=== PATIENT | female | born 1975 | race Caucasian/White ===

== ENCOUNTER → 2020-10-11 09:20 | Outpatient (BNVA) | payer OTHER, SELFPAY | PROVIDERS: Visit Provider Obstetrics & Gynecology ==

== ENCOUNTER 2020-10-24 13:19 | Outpatient (REF) | payer OTHER, SELFPAY ==
--- NOTE | ~2020-10-24 | MM_ITS ---
EXAMINATION: MM DIAGNOSTIC DIGITAL BREAST TOMOSYNTHESIS, BILATERAL US DIAGNOSTIC ULTRASOUND BREAST, LEFT CLINICAL INFORMATION: 45-year-old with [place] sized palpable nodule 4:00 left breast for one month. Clinical exam also notes palpable fullness left breast 6:00 position 3 cm from nipple. No prior breast imaging. No known family history breast cancer. The lifetime risk of breast cancer based on the Tyrer-Cuzick Model is 13%. COMPARISON: None (current study represents initial baseline exam). TECHNIQUE: Digital breast tomosynthesis is performed in both the craniocaudal and mediolateral oblique views along with computer-aided detection (CAD). Synthesized 2D images are generated from the tomosynthesis. Additional views are provided: Left MLO, right CC x2. Ultrasound left breast is targeted to the areas of clinical concern including 2:00 through 8:00 position. Patient is able to point to the area of palpable concern at time of imaging. Grayscale imaging and color Doppler are performed without and with harmonics. FINDINGS: The breasts are heterogeneously dense, which may obscure small masses (ACR BI-RADS breast composition Category c). Parenchymal pattern borders on average fibroglandular. There is no mass or architectural abnormality. There is mild left nipple retraction. No abnormal calcifications in either breast. The axilla and skin contours are unremarkable. There are numerous fine punctate densities overlying the posterior medial breasts at the inframammary folds, more numerous on the right. These correspond to the skin on tomography. Although some of the punctate particles may correspond to skin calcifications, the distribution and arrangement are suggestive of artifact. Discussion with the patient confirms use of Desitin topical, last used yesterday. Ultrasound demonstrates no cystic or solid mass or architectural abnormality. No focal duct ectasia. No skin thickening or edema tracking in soft tissue planes. Results are discussed with the patient at time of visit. Patient should be managed based on the clinical impression. If clinically indicated, further evaluation may be considered with surgical consult. Decision to proceed with biopsy should be based on clinical grounds and degree of clinical concern. MM/MM tomosynthesis diagnostic BI IMPRESSION: 1. No mammographic evidence of malignancy. 2. Unremarkable targeted left breast ultrasound. 3. No imaging correlate for palpable concerns left breast. ASSESSMENT: BI-RADS 2: Benign RECOMMENDATION: 1. Patient should be managed based on the clinical impression. If clinically indicated, further evaluation may be considered with surgical consult. Decision to proceed with biopsy should be based on clinical grounds and degree of clinical concern. 2. Otherwise, routine annual screening mammography. This patient's information was entered into a reminder system with a target due date for their next mammogram.
== END 2020-10-24 13:20 | disposition home or self-care (01) ==
LOC: HO.MAMMO 13:19
PROVIDERS: Visit Provider Obstetrics & Gynecology
DX: N63.23 Unspecified lump in the left breast, lower outer quadrant (principal); N63.25 Unspecified lump in the left breast, overlapping quadrants
CPT/HCPCS: 76642; 77062; 77066

== ENCOUNTER 2023-03-09 06:04 | Outpatient (REF) | payer OTHER, SELFPAY ==
[2023-03-09 06:29] LABS: MANUAL DIFF FLAG NO
[2023-03-09 07:46] LABS: Basophils Absolute Auto 0.1 X10*3/uL (0.0-0.2); Basophils Percent Auto 0.9 % (0-2); Hematocrit 40.6 % (37.0-47.0); Hemoglobin 13.5 g/dl (12.0-16.0); Imm Gran Abs Auto 0.03 X10*3/uL (0.00-0.03); Imm Gran Pct Auto 0.3 % (0.0-0.4); Lymphocytes Absolute Auto 2.2 X10*3/uL (1.2-4.9); Lymphocytes Percent Auto 25.4 % (20-40); Mean Corpuscular HGB Conc 33.3 g/dl (31.0-35.0); Mean Corpuscular Hemoglobin 30.9 pg (27.0-33.0); Mean Corpuscular Volume 92.9 fL (80.0-98.0); Mean Platelet Volume 9.9 fL (9.4-12.3); Monocytes Absolute Auto 0.6 X10*3/uL (0.1-1.2); Monocytes Percent Auto 7.2 % (2-11); Neutrophils Absolute Auto 4.6 x10*3/uL (2.0-8.3); Neutrophils Percent Auto 54.2 % (45-73); Platelet Count 399 X10*3/uL (160-400); Red Blood Count 4.37 X10*6/uL (4.20-5.50); Red Cell Distribution Width 12.5 % (11.0-16.0); White Blood Count 8.6 X10*3/uL (4.8-10.8)
[2023-03-09 08:12] LABS: Alanine Aminotransferase 14 U/L (0-31); Albumin Level 3.8 g/dL (3.5-5.0); Alkaline Phosphatase 50 U/L (39-117); Anion Gap 12 (12-20); Aspartate Amino Transferase 14 U/L (5-31); Bilirubin Total 0.5 mg/dL (0.0-1.0); Blood Urea Nitrogen 17 mg/dL (9-16); Calcium 9.2 mg/dL (8.4-10.2); Carbon Dioxide 21 mmol/L (22-29); Chloride 110 mmol/L (96-108); Cholesterol 176 mg/dL (<200); Estimated Glomerular Filt Rate > 60; Glucose Random 88 mg/dL (60-115); HDL Cholesterol 46 mg/dL (>40); LDL Cholesterol Calculated 120 mg/dL (<100); Potassium 4.5 mmol/L (3.3-5.1); Sodium 138 mmol/L (135-145); Triglycerides 54 mg/dL (<150)
== END 2023-03-09 06:05 | disposition home or self-care (01) ==
LOC: HO.LAB 06:04
PROVIDERS: PCP Internal Medicine; Visit Provider Internal Medicine
DX: Z00.01 Encounter for general adult medical examination with abnormal findings (principal); K43.9 Ventral hernia without obstruction or gangrene; I10 Essential (primary) hypertension; F32.9 Major depressive disorder, single episode, unspecified; G43.109 Migraine with aura, not intractable, without status migrainosus
CPT/HCPCS: 36415; 80053; 80061; 85025

== ENCOUNTER 2024-02-06 06:57 | Outpatient (REF) | payer OTHER, SELFPAY ==
[2024-02-06 07:17] LABS: MANUAL DIFF FLAG NO
[2024-02-06 08:02] LABS: Basophils Absolute Auto 0.1 X10*3/uL (0.0-0.2); Basophils Percent Auto 0.8 % (0-2); Eosinophils Absolute Auto 0.2 X10*3/uL (0.0-0.4); Eosinophils Percent Auto 2.9 % (0-4); Hematocrit 37.9 % (37.0-47.0); Hemoglobin 12.9 g/dl (12.0-16.0); Imm Gran Abs Auto 0.03 X10*3/uL (0.00-0.03); Imm Gran Pct Auto 0.4 % (0.0-0.4); Lymphocytes Absolute Auto 2.1 X10*3/uL (1.2-4.9); Lymphocytes Percent Auto 26.8 % (20-40); Mean Corpuscular Hemoglobin 30.8 pg (27.0-33.0); Mean Corpuscular Volume 90.5 fL (80.0-98.0); Mean Platelet Volume 9.1 fL (9.4-12.3); Monocytes Absolute Auto 0.6 X10*3/uL (0.1-1.2); Monocytes Percent Auto 7.5 % (2-11); Neutrophils Absolute Auto 4.8 x10*3/uL (2.0-8.3); Neutrophils Percent Auto 61.6 % (45-73); Platelet Count 396 X10*3/uL (160-400); Red Blood Count 4.19 X10*6/uL (4.20-5.50); Red Cell Distribution Width 13.2 % (11.0-16.0); White Blood Count 7.8 X10*3/uL (4.8-10.8)
[2024-02-06 08:44] LABS: Alanine Aminotransferase 21 U/L (0-31); Albumin Level 3.8 g/dL (3.5-5.0); Alkaline Phosphatase 56 U/L (39-117); Anion Gap 12 (12-20); Aspartate Amino Transferase 17 U/L (5-31); Bilirubin Total 0.4 mg/dL (0.0-1.0); Blood Urea Nitrogen 13 mg/dL (9-16); Calcium 9.5 mg/dL (8.4-10.2); Carbon Dioxide 22 mmol/L (22-29); Chloride 111 mmol/L (96-108); Cholesterol 179 mg/dL (<200); Estimated Glomerular Filt Rate > 60; Glucose Random 87 mg/dL (60-115); HDL Cholesterol 50 mg/dL (>40); LDL Cholesterol Calculated 105 mg/dL (<100); Potassium 4.2 mmol/L (3.3-5.1); Sodium 141 mmol/L (135-145); Triglycerides 124 mg/dL (<150)
== END 2024-02-06 06:58 | disposition home or self-care (01) ==
LOC: HO.LAB 06:57
PROVIDERS: PCP Internal Medicine; Visit Provider Internal Medicine
DX: I10 Essential (primary) hypertension (principal); G43.109 Migraine with aura, not intractable, without status migrainosus
CPT/HCPCS: 36415; 80053; 80061; 85025

== ENCOUNTER 2024-02-29 15:11 | Outpatient (AMB) | payer OTHER, SELFPAY ==
--- NOTE | 2024-02-29 15:12 | MHC.OFFVIS ---
Vital Signs 02/29/24 15:22 Height 5 ft 6 in Weight 187 lb BMI 30.2 BP 131/73 Blood Pressure Location Rt brachial Position Standing Pulse 88 Intake Visit Reasons: Ventral Hernia Intake Note: This patient was referred by Dr. Lozano for ventral hernia assessment. Pt c/o; reports bulge, reports no pain or discomfort at this time, reports no changes in bowel habits. Power Equipment Mechanics Instructor Required: No Accompanied by: Self / Same As Patient Allergies No Known Allergies [No Known Allergies*] Allergy (Unverified 02/29/24 15:23) Medication List - Last Reconciled 02/29/24 by Newton Luis MD amitriptyline 25 mg PO BEDTIME naproxen 500 mg PO BID sumatriptan succinate 100 mg PO HPI HPI Ventral Hernia: Details: [age] year old female referred for a hernia. She says that he has noticed this reducible mass above her umbilicus for about 2 years now. She says that this started as very small before but this has increased in size. This has been giving her more discomfort now. She denies GI complaints. [facility] Medical History (Updated 02/29/24 @ 15:33 by Newton Luis MD) Supraumbilical hernia Surgical History No pertinent past surgical history Family History Other Family history unknown Social History Alcohol intake: never Patient Tobacco Use Status: Never used Tobacco Female Reproductive History Menstrual Age of Menarche: 9 Review of Systems Const Denies chills and Denies fever(s) Card Denies chest pain, Denies dyspnea and Denies dyspnea on exertion Resp Denies cough, Denies dyspnea and Denies dyspnea on exertion GI Denies hematochezia and Denies change in bowel habits Denies hematuria Musc Denies back pain and Denies limited range of motion Neuro Denies focal weakness and Denies convulsions Psych Denies depression and Denies mood swings Physical Exam Vital Signs: Last Vital Signs Pulse 88 02/29/24 15:22 BP 131/73 02/29/24 15:22 BMI result Body Mass Index 30.2 Const General: comfortable and no acute distress Orientation/consciousness: patient oriented x3 Neck Neck: Yes no lymphadenopathy Resp Auscultation: clear to auscultation bilaterally Cardio Rhythm: regular rhythm GI Other: Reducible supraumbilical hernia, with a defect about 3 cm, nontender Palpation (GI): Soft to palpation, nontender and no guarding Neuro General: patient oriented x3 Assessment & Plan Assessment & Plan (1) Supraumbilical hernia: Code(s): K43.9 - Ventral hernia without obstruction or gangrene Category: Medical Plan: She has a supraumbilical hernia described above. She wants to proceed with the repair in view of symptoms. I explained to her the technique of repair of this hernia with possible mesh. I reviewed the risks including but not limited to bleeding, infections, bowel injury, recurrence, as well as the benefits and alternatives I explained to him what to expect postoperatively She was given consent. Coding Level of Care Code New Pt Level 3 (83638) Diagnoses Supraumbilical hernia K43.9
[2024-02-29 15:22] VITALS: BP 131/73; PULSE 88; BMI 30.2
== END 2024-02-29 15:30 | disposition home or self-care (01) ==
PROVIDERS: PCP Internal Medicine; Referring Provider Internal Medicine; Visit Provider Surgery
DX: K43.9 Ventral hernia without obstruction or gangrene (principal)
CPT/HCPCS: 99203

== ENCOUNTER 2024-03-10 14:58 | Outpatient (REF) | payer OTHER, SELFPAY ==
--- OUTSIDE RECORDS SUMMARY | 2024-03-10 15:06 | XMS_ITS ---
Author Organization [facility] Address [address] [place] [address] Care Team Providers Care Visual Communications Instructor Name Role Phone Anastasiya Mercado Primary Care Provider Unavailab Tylor Grullon Unavailable [phone] REASON FOR VISIT colonoscopy Encounters Encounter Location Date Provider Diagnosis [facility] [address] [place] [address] 02/15/2024 Tylor Allen PLAN OF TREATMENT Next Appt Details Provider Name:Tylor Allen , 04/25/2024 02:30:00 PM, [address] [place] [address] , [place], [place], [phone], Provider Name:Tylor Allen , 06/16/2024 10:20:00 AM, [address] [facility] [address], [address], [place], [address],
--- OUTSIDE RECORDS SUMMARY | 2024-03-10 15:07 | XMS_ITS | Patient Health Record ---
Author Organization [facility] Address [address] [place] [address] Care Team Providers Care Cmo & President Name Role Phone Anastasiya Mercado Primary Care Provider Tylor Alba Unavailable [phone] ALLERGIES No Known Allergies REASON FOR REFERRAL [...] screening (Z12.11) Active confirmed Colon cancer screening (246754421) Problem Encounter for other preprocedural examination (Z01.818) Active confirmed Pre-procedure evaluation check (341984271) VITAL SIGNS Blood pressure diastolic 00 mm Hg 07/30/2023 Height 5 ft 6 in in 07/30/2023 Blood pressure systolic 00 mm Hg 07/30/2023 Weight 180 lbs 07/30/2023 BMI 29.05 kg/m2 07/30/2023 Encounters Encounter Location Date Provider Diagnosis [facility] [place] Outpatient [address] [place] [phone] 09/30/2023 Tylor Allen [facility] [address] [place] [phone] 07/30/2023 Tylor Allen Colon cancer screeni ng Z12.11 and Encounter for other preprocedural examination Z01.818 [facility] [address] [place] [phone] 08/25/2023 Tylor Allen [facility] [address] [place] [phone] 02/15/2024 Tylor Allen ASSESSMENTS Encounter Date Diagnosis [...] Provider Name:Tylor Allen , 04/25/2024 02:30:00 PM, [address] [place] [address] , [place], [place], [phone], Provider Name:Tylor Allen , 06/16/2024 10:20:00 AM, [address] [place] [address], [address] [facility], [place], [address], Insurance Providers Payer Name Payer Address Payer Phone Subscriber Number Group Number Insured Name Patient Relationship to Insured Coverage Start Date Coverage End Date [facility] [address] [address] [place] [address] [phone] [id number] BARTOLO VILLA Self - patient is the insured MEDICAL (GENERAL) HISTORY Medical History History ICD Code Denies [place],DM,CVA,Lung disease,renal dise ase Migraines Surgical History Surgery Date(Month/Year)
--- OUTSIDE RECORDS SUMMARY | 2024-03-10 15:07 | XMS_ITS ---
Author Organization [facility] Address [address] [place] [address] Care Team Providers Care Tray Drier Operator Name Role Phone Anastasiya Mercado Primary Care Provider Unavailab Tylor Grullon Unavailable [phone] REASON FOR VISIT screening Encounters Encounter Location Date Provider Diagnosis [facility] [place] Out[place] [address] [place] [phone] 09/30/2023 Tylor Allen PLAN OF TREATMENT Next Appt Details Provider Name:Tylor Allen , 04/25/2024 02:30:00 PM, [address] [place] [address] , [place], [place], [phone], Provider Name:Tylor Allen , 06/16/2024 10:20:00 AM, [address] [place] [address], [address], [place], [address],
--- OUTSIDE RECORDS SUMMARY | 2024-03-10 15:07 | XMS_ITS ---
Author Organization [facility] Address [address] [place] [address] [place] [phone] Care Team Providers Care Educational Assistant Teacher Name Role Phone Anastasiya Mercado Primary Care Provider Unavailab Tylor Grullon Unavailable [phone] REASON FOR VISIT cancelled September 29 booking Encounters Encounter Location Date Provider Diagnosis [facility] [address] [place] [address] [place] [phone] 08/25/2023 Tylor Allen PLAN OF TREATMENT Next Appt Details Provider Name:Tylor Allen , 04/25/2024 02:30:00 PM, [address] [place] [address] , [place], [place], [phone], Provider Name:Tylor Allen , 06/16/2024 10:20:00 AM, [address] [place] [address], [address], [place], [address],
== END 2024-03-10 14:59 | disposition home or self-care (01) ==
LOC: HO.MAMMO 14:58
PROVIDERS: PCP Internal Medicine; Visit Provider Internal Medicine
DX: Z12.31 Encounter for screening mammogram for malignant neoplasm of breast (principal)
CPT/HCPCS: 77063; 77067

== ENCOUNTER → 2024-03-10 15:15 | Outpatient (BNV) | payer OTHER, SELFPAY | PROVIDERS: PCP Internal Medicine; Visit Provider Internal Medicine | DX: Z12.31 Encounter for screening mammogram for malignant neoplasm of breast (principal) | CPT/HCPCS: 77063; 77067 ==

== ENCOUNTER 2024-04-25 10:08 | Day surgery (SDC) | payer OTHER, SELFPAY ==
[2024-04-21 15:05] VITALS: BMI 29.0
--- NOTE | 2024-04-22 09:41 | HO.ANESPROP2 ---
Documented by User: Doreen Daily NP 04/22/24 09:41 HPI - Anesthesia Eval Consult details Narrative: 49yo F for Colonoscopy PMFSH Active Problems Active Problems: All Active Problems Left breast lump (Acute) Supraumbilical hernia (Acute) Past Medical History Medical History (Updated 04/21/24 @ 15:05 by Carmen Snyder RN) Migraines Supraumbilical hernia Family History Family History Other Family history unknown Surgical History Surgical History No pertinent past surgical history Social History Social History Alcohol intake: never Patient Tobacco Use Status: Never used Tobacco Use of substances other than those prescribed or required for medical reasons: No Are you DNR?: No Advance Directives: No Advance Directives Information Provided: Yes Meds Allergies Allergy/AdvReac Type Severity Reaction Status Date / Time No Known Allergies Allergy Unverified 02/29/24 15:23 [No Known Allergies*] Home Medications ?Medication ?Instructions ?Recorded ?Confirmed ?Last Taken ?Type amitriptyline 25 mg tablet 25 mg PO BEDTIME 02/29/24 02/29/24 Unknown History naproxen 500 mg tablet 500 mg PO BID 02/29/24 02/29/24 Unknown History sumatriptan succinate 100 mg tablet 100 mg PO DAILY PRN migraine 02/29/24 02/29/24 Unknown History multivitamin 1 tab PO DAILY 04/21/24 04/21/24 Unknown History Exam Height,Weight and Vital Signs: Height 5 ft 6 in Weight 81.647 kg Assessment and Plan Assessment Anesthesia Assessment: Chart Reviewed Documented by User: Yogesh Bruce MD 04/25/24 13:00 PMFSH Past Medical History Medical History (Updated 04/21/24 @ 15:05 by Carmen Snyder RN) Migraines Supraumbilical hernia Family History Family History Other Family history unknown Family history of problems with anesthesia: No Surgical History Surgical History No pertinent past surgical history History of Problems with Anesthesia: No Social History Social History Alcohol intake: never Patient Tobacco Use Status: Never used Tobacco Use of substances other than those prescribed or required for medical reasons: No Are you DNR?: No Advance Directives: No Advance Directives Information Provided: Yes Meds Allergies Allergy/AdvReac Type Severity Reaction Status Date / Time No Known Allergies Allergy Unverified 02/29/24 15:23 [No Known Allergies*] Home Medications ?Medication ?Instructions ?Recorded ?Confirmed ?Last Taken ?Type amitriptyline 25 mg tablet 25 mg PO BEDTIME 02/29/24 02/29/24 Unknown History naproxen 500 mg tablet 500 mg PO BID 02/29/24 02/29/24 Unknown History sumatriptan succinate 100 mg tablet 100 mg PO DAILY PRN migraine 02/29/24 02/29/24 Unknown History multivitamin 1 tab PO DAILY 04/21/24 04/21/24 Unknown History Exam Airway Mallampati Class: II TM Dist: >3cm Neck ROM: Full Loose/Missing/Broken Teeth: Yes Heart: ok Lungs: ok Assessment and Plan Assessment Anesthesia Assessment: Anesthesia Plan Discussed Final Anesthetic Review Family History of Problems with Anesthesia: No History of Problems with Anesthesia: No NPO: Yes ASA Class: II Final Preanesthetic Review: No Changes in Pt Med Stat, Meds/Allgs Chart Reviewed, Consent Obtained/Reviewed and Anes Risks/Benef Reviewed Patient Risk: Low Procedure Risk: Low Anesthetic Plan Anesthetic Plan: MAC: and Agree w/ Assess. and Plan Disposition: Standard PACU
[2024-04-25 10:23] VITALS: BP 136/74; PULSE 87; RESP 16; TEMP 36.2; O2SAT 100
[2024-04-25] MEDS: Lactated Ringers 1,000 ML 100 ML IVCONT (10:46)
[2024-04-25 10:48] VITALS: BMI 29.3
[2024-04-25 13:42] VITALS: BP 98/54; PULSE 82; RESP 18; TEMP 36.6; O2SAT 100
--- NOTE | 2024-04-25 13:42 | PM.OP ---
Brief Operative Note Date of Service: 04/25/24 Pre-op diagnosis: Screening Post-op diagnosis: other (Diverticulosis) Procedure: Colonoscopy to the cecum and TI Surgeon: Tylor Allen MD Anesthesia: MAC Was an Nuclear Waste Process Operator used for this Procedure?: No Estimated blood loss (mL): 0 Pathology: none sent Condition: stable Disposition: PACU
[2024-04-25 13:57] VITALS: BP 117/77; PULSE 72; RESP 20; O2SAT 99
[2024-04-25 14:07] VITALS: BP 147/44; PULSE 82; RESP 20; TEMP 36.4; O2SAT 98
--- OUTSIDE RECORDS SUMMARY | 2024-04-25 14:43 | XMS_ITS ---
Author Organization [facility] Address [address] [place] [address] Care Team Providers Care Hired Help Name Role Phone Anastasiya Mercado Primary Care Provider Unavailab Tylor Grullon Unavailable [phone] REASON FOR VISIT colon screening Encounters Encounter Location Date Provider Diagnosis [facility] [place] [address] [place], [place] [phone] 04/25/2024 Tylor Allen PLAN OF TREATMENT Next Appt Details Provider Name:Tylor Allen , 06/16/2024 10:20:00 AM, [address], [address], [place], [address],
--- OUTSIDE RECORDS SUMMARY | 2024-04-25 14:43 | XMS_ITS ---
Author Organization [facility] Address [address] [place] [address] Care Team Providers Care Cleaner Name Role Phone Anastasiya Mercado Primary Care Provider Unavailab Tylor Grullon Unavailable [phone] REASON FOR VISIT colonoscopy Encounters Encounter Location Date Provider Diagnosis [facility] [address] [place] [address] [address] [place] [address] 02/15/2024 Tylor Allen PLAN OF TREATMENT Next Appt Details Provider Name:Tylor Allen , 06/16/2024 10:20:00 AM, [address], [address], [place], [address],
--- OUTSIDE RECORDS SUMMARY | 2024-04-25 14:44 | XMS_ITS | Patient Health Record ---
Author Organization [facility] Address [address] [place] [address] Care Team Providers Care Furnace Unloader Name Role Phone Anastasiya Mercado Primary Care Provider Tylor Alba Unavailable [phone] ALLERGIES No Known Allergies REASON FOR REFERRAL [...] screening (Z12.11) Active confirmed Colon cancer screening (797764343) Problem Encounter for other preprocedural examination (Z01.818) Active confirmed Pre-procedure evaluation check (912165049) VITAL SIGNS Blood pressure diastolic 00 mm Hg 07/30/2023 Height 5 ft 6 in in 07/30/2023 Blood pressure systolic 00 mm Hg 07/30/2023 Weight 180 lbs 07/30/2023 BMI 29.05 kg/m2 07/30/2023 Encounters Encounter Location Date Provider Diagnosis [facility] [place] [address] [place], [place] [phone] 09/30/2023 Tylor Allen [facility] [place] [address] [place], [place] [phone] 04/25/2024 Tylor Allen [facility] [address] [facility] [address] [place] [phone] 07/30/2023 Tylor Allen Colon cancer screeni ng Z12.11 and Encounter for other preprocedural examination Z01.818 [facility] [address] [place] [address] 08/25/2023 Tylor Allen [facility] [address] [place] [address] 02/15/2024 Tylor Allen ASSESSMENTS Encounter Date Diagnosis Assessment Notes Treatment Notes Treatment Clinical Notes 07/30/2023 Colon cancer screening (ICD-10 - Z12.11) Do not take the Naproxen and Turmeric for one week before the colonoscopy 07/30/2023 Encounter for other preprocedural examination (ICD-10 - Z01.818) PLAN OF TREATMENT Future Test Test Name Order Date COLONOSCOPY 07/30/2023 Next Appt Details Provider Name:Tylor Mari Allen , 06/16/2024 10:20:00 AM, [address] [address], [place] [address], [place], [address], Insurance Providers Payer Name Payer Address Payer Phone Subscriber Number Group Number Insured Name Patient Relationship to Insured Coverage Start Date Coverage End Date [facility] [address] [address] [place] [id number] BARTOLO VILLA Self - patient is the insured MEDICAL (GENERAL) HISTORY Medical History History ICD Code Denies [place],DM,CVA,Lung disease,renal dise ase Migraines Surgical History Surgery Date(Month/Year)
--- OUTSIDE RECORDS SUMMARY | 2024-04-25 14:44 | XMS_ITS ---
Author Organization [facility] Address [address] [facility] [address] [place] [address] Care Team Providers Care Oxyacetylene Cutter Name Role Phone Anastasiya Mercado Primary Care Provider Unavailab Tylor Grullon Unavailable [phone] REASON FOR VISIT screening Encounters Encounter Location Date Provider Diagnosis [facility] [place] [address] [place], [place] [phone] 09/30/2023 Tylor Allen PLAN OF TREATMENT Next Appt Details Provider Name:Tylor Allen , 06/16/2024 10:20:00 AM, [address] [facility] [address] [facility] [address], [address], [place], [address],
--- NOTE | 2024-04-26 00:08 | OP_ITS ---
DATE OF SERVICE: 04/25/2024 SURGEON: Tylor Allen MD INDICATIONS: The patient presents for evaluation of colorectal cancer screening. Full consent has been obtained from her for this, including risks of bleeding and perforation. PREOPERATIVE DIAGNOSIS: Colorectal cancer screening. POSTOPERATIVE DIAGNOSIS: PROCEDURE PERFORMED: Colonoscopy to the cecum and terminal ileum. ESTIMATED BLOOD LOSS: COMPLICATIONS: ANESTHESIA: Monitored anesthesia care. ASSISTANTS: SPECIMENS: POSTOPERATIVE DIAGNOSES: Colorectal cancer screening, mild sigmoid diverticulosis, and small internal hemorrhoids. DESCRIPTION OF PROCEDURE: The patient was placed in the left lateral decubitus position. The digital rectal exam revealed no abnormalities. The Olympus video pediatric colonoscope was entered into the rectum and advanced to the cecum with the assistance of abdominal wall pressure. Once in the cecum, I did identify normal-appearing cecal pouch with appendiceal orifice and a normal-appearing ileocecal valve. The terminal ileum was cannulated and appeared normal. Scope was withdrawn back in the colon. The entire cecum and ileocecal valve appeared normal. The scope was slowly withdrawn assessing all mucosal surfaces carefully. Preparation was excellent. I did not visualize any sign of polyps, colitis, nor angiodysplasia. There were occasional diverticula noted in the sigmoid colon. In the rectum, scope was retroflexed visualizing internal hemorrhoids, but no other pathology. The rectal mucosa appeared normal. The scope was straightened and withdrawn from the patient. She tolerated the procedure well and was returned to the recovery area in stable condition. IMPRESSION: 1. Mild diverticulosis. 2. Small internal hemorrhoids. PLAN: Given her negative exam today and no family history of colon cancer, I would recommend a repeat colonoscopy in 10 years for further screening. She will otherwise see me on a p.r.n. basis. MD TERRY Villarreal/KRISHNA / [phone]
== END 2024-04-25 14:27 | disposition home or self-care (01) ==
PROVIDERS: PCP Internal Medicine; Visit Provider Internal Medicine
PROC: 0DJD8ZZ Inspection of Lower Intestinal Tract, Via Natural or Artificial Opening Endoscopic (ICD-10-PCS; CPT 45378; principal; 2024-04-25 11:30)
DX: Z12.11 Encounter for screening for malignant neoplasm of colon (principal); K57.30 Diverticulosis of large intestine without perforation or abscess without bleeding; K64.8 Other hemorrhoids; K43.9 Ventral hernia without obstruction or gangrene; G43.909 Migraine, unspecified, not intractable, without status migrainosus; Z79.1 Long term (current) use of non-steroidal anti-inflammatories (NSAID); Z79.899 Other long term (current) drug therapy
CPT/HCPCS: 45378; J2003; J2704; J3010

== ENCOUNTER 2024-05-03 08:39 | Day surgery (SDC) | payer OTHER, SELFPAY ==
--- OUTSIDE RECORDS SUMMARY | 2024-03-09 22:49 | XMS_ITS ---
Author Organization [facility] Address [address] [place] [address] Care Team Providers Care Caramel Candy Maker Name Role Phone Anastasiya Mercado Primary Care Provider Unavailab Tylor Grullon Unavailable [phone] REASON FOR VISIT screening Encounters Encounter Location Date Provider Diagnosis [facility] [place] [address] [place] [phone] 09/30/2023 Tylor Allen PLAN OF TREATMENT Next Appt Details Provider Name:Tylor Allen , 04/25/2024 02:30:00 PM, [address] [place] [address] , [place], [place], [phone], Provider Name:Tylor Allen , 06/16/2024 10:20:00 AM, [address] [place] [address], [address], [place], [address],
--- OUTSIDE RECORDS SUMMARY | 2024-03-09 22:49 | XMS_ITS ---
Author Organization [facility] Address [address] [place] [address] [place] [address] Care Team Providers Care Registered Dental Hygienist Name Role Phone Anastasiya Mercado Primary Care Provider Unavailab Tylor Grullon Unavailable [phone] REASON FOR VISIT cancelled September 29 booking Encounters Encounter Location Date Provider Diagnosis [facility] [address] [place] [address] [place] [phone] 08/25/2023 Tylor Allen PLAN OF TREATMENT Next Appt Details Provider Name:Tylor Allen , 04/25/2024 02:30:00 PM, [address] [place] [address] , [place], [place], [phone], Provider Name:Tylor Allen , 06/16/2024 10:20:00 AM, [address] [place] [address], [address], [place], [address],
--- OUTSIDE RECORDS SUMMARY | 2024-03-09 22:49 | XMS_ITS ---
Author Organization [facility] Address [address] [place] [address] Care Team Providers Care File Conversion Operator Name Role Phone Anastasiya Mercado Primary Care Provider Unavailab Tylor Grullon Unavailable [phone] REASON FOR VISIT colonoscopy Encounters Encounter Location Date Provider Diagnosis [facility] [address] [place] [address] 02/15/2024 Tylor Allen PLAN OF TREATMENT Next Appt Details Provider Name:Tylor Allen , 04/25/2024 02:30:00 PM, [address] [place] [address] , [place], [place], [phone], Provider Name:Tylor Allen , 06/16/2024 10:20:00 AM, [address], [address], [place], [address],
--- OUTSIDE RECORDS SUMMARY | 2024-03-09 22:50 | XMS_ITS | Patient Health Record ---
Author Organization [facility] Address [address] [place] [address] Care Team Providers Care Lining Printer Name Role Phone Anastasiya Mercado Primary Care Provider Tylor Alba Unavailable [phone] ALLERGIES No Known Allergies REASON FOR REFERRAL No Information MEDICATIONS Medication SIG (Take, Route, Frequency, Duration) Notes Start Date End Date Status Multivitamin - 1 tablet Orally Once a day for 30 day(s) Active Naproxen 500 MG TAKE ONE TABLET BY M OUTH TWICE A DAY Oral for 30 Active SUMAtriptan Succinate 100 MG TAKE ONE TA BLET BY MOUTH NEEDED FOR MIGRAINE HEADACHES 30 DAY SUPPLY) Oral for 30 Active Amitriptyline HCl 10 MG TAKE ONE TABLET BY MOUTH AT BEDTIME Oral for 30 Active Turmeric Active SOCIAL HISTORY Tobacco Use: Social History Observation Description Date Details (start date - stop date) Never Smoker NA - NA Sex Assigned At : Social History Observation Description Sex Assigned At Unknown Tobacco Use/Smoking Question Answer Notes Patient is a nonsmoker Alcohol Screen Question Answer Notes Did you have a drink containing alcohol in the p ast year? No Points 0 Interpretation Negative PROBLEMS Problem Type ICD Code Onset Dates Problem Status W/U Status Risk SNOMED Code Notes Problem Colon cancer screening (Z12.11) Active confirmed Colon cancer screening (793425293) Problem Encounter for other preprocedural examination (Z01.818) Active confirmed Pre-procedure evaluation check (651298814) VITAL SIGNS Blood pressure diastolic 00 mm Hg 07/30/2023 Height 5 ft 6 in in 07/30/2023 Blood pressure systolic 00 mm Hg 07/30/2023 Weight 180 lbs 07/30/2023 BMI 29.05 kg/m2 07/30/2023 Encounters Encounter Location Date Provider Diagnosis [facility] [place] Outpatient [address] [place] [phone] 09/30/2023 Tylor Allen [facility] [address] [place] [phone] 07/30/2023 Tylor Allen Colon cancer screeni ng Z12.11 and Encounter for other preprocedural examination Z01.818 [facility] [address] [place] [phone] 08/25/2023 Tylor Allen [facility] [address] [place] [phone] 02/15/2024 Tylor Allen ASSESSMENTS Encounter Date Diagnosis Assessment Notes Treatment Notes Treatment Clinical Notes 07/30/2023 Colon cancer screening (ICD-10 - Z12.11) Do not take the Naproxen and Turmeric for one week before the colonoscopy 07/30/2023 Encounter for other preprocedural examination (ICD-10 - Z01.818) PLAN OF TREATMENT Future Test Test Name Order Date COLONOSCOPY 07/30/2023 Next Appt Details Provider Name:Tylor Allen , 04/25/2024 02:30:00 PM, [address] [place] [address] , [place], [place], [phone], Provider Name:Tylor Allen , 06/16/2024 10:20:00 AM, [address] [place] [address], Suite [facility], [place], [address], Insurance Providers Payer Name Payer Address Payer Phone Subscriber Number Group Number Insured Name Patient Relationship to Insured Coverage Start Date Coverage End Date [facility] [address] [address] [place] [address] [phone] [id number] BARTOLO VILLA Self - patient is the insured MEDICAL (GENERAL) HISTORY Medical History History ICD Code Denies [place],DM,CVA,Lung disease,renal dise ase Migraines Surgical History Surgery Date(Month/Year)
[2024-04-29 15:28] VITALS: BMI 30.2
--- NOTE | 2024-05-02 11:42 | HO.ANESPROP2 ---
HPI - Anesthesia Eval Consult details Narrative: 49yo F for Repair Hernia Supraumbilical Reducible with mesh s/p colo 03/2024 with MAC PMFSH Active Problems Active Problems: All Active Problems Left breast lump (Acute) Supraumbilical hernia (Acute) Past Medical History Medical History (Updated 04/21/24 @ 15:05 by Carmen Snyder, JEANNETTE) Migraines Supraumbilical hernia Family History Family History Other Family history unknown Family history of problems with anesthesia: No Surgical History Surgical History (Updated 04/29/24 @ 15:20 by Nichol Lanier, JEANNETTE) Hx of colonoscopy (04/25/24) History of Problems with Anesthesia: No Social History Social History (Updated 04/29/24 @ 15:35 by Nichol Lanier, JEANNETTE) Household Members: Other Household Members Other:: mother + sister Housing: House Are you a primary child care associate to a significant other at home: No Do you presently have visiting nurse or other home services: No Alcohol intake: never Patient Tobacco Use Status: Never used Tobacco Use of substances other than those prescribed or required for medical reasons: No Are you DNR?: No Advance Directives: No (will bring dos) Advance Directives Information Provided: No Advance Directives on File: No Meds Allergies Allergy/AdvReac Type Severity Reaction Status Date / Time No Known Allergies Allergy Verified 04/29/24 15:34 [No Known Allergies*] Home Medications ?Medication ?Instructions ?Recorded ?Confirmed ?Last Taken ?Type amitriptyline 25 mg tablet 25 mg PO BEDTIME 02/29/24 04/29/24 Unknown History naproxen 500 mg tablet 500 mg PO BID 02/29/24 04/29/24 Unknown History Exam Height,Weight and Vital Signs: Height 5 ft 6 in Weight 84.822 kg Assessment and Plan Assessment Anesthesia Assessment: Chart Reviewed Final Anesthetic Review Family History of Problems with Anesthesia: No History of Problems with Anesthesia: No
[2024-05-03] VITALS (8 sets, daily range): BP systolic 121–150; BP diastolic 78–88; PULSE 68–80; RESP 12–16; TEMP 36.2–36.9; O2SAT 98–100; BMI 29.4
[2024-05-03] MEDS: Lactated Ringers 1,000 ML 100 ML IVCONT (09:58)
--- NOTE | 2024-05-03 10:54 | MHC.SHP ---
Pre-Procedural Eval Section A - 24 Hr Update-Section A only Date of Service: 05/03/24 Section B - Complete if H&P > 30 days Chief Complaint: Ventral hernia without obstruction or gangrene Details of Present Illness: Has a supraumbilical hernia, about 2-3 cm Relevant Family History (Specify if Yes): No Relevant Social History: None Present Medications: see Short Stay Collaborative assessment Medical History: No relevant PMH Allergies: Allergies Allergy/AdvReac Type Severity Reaction Status Date / Time No Known Allergies Allergy Verified 05/03/24 09:28 [No Known Allergies*] Review of Systems Sugical H&P ROS: Negative: Constitution, Cardiovascular and Respiratory Exam Surgical H&P Exam: Normal: Heart and Normal: Lungs and Not Evaluated: Abdomen (Supraumbilical hernia) Plan Diagnosis/Plan: Unchanged I have reviewed the history and physical and performed a pertinent physical examination on my patient. No changes have occurred unless specified. Time Spent With Patient Time: Total time managing care of this patient today ____ minutes.
--- NOTE | 2024-05-03 12:02 | W.PM.OPN ---
Operative Note Operative Note Date of Service: 05/03/24 Narrative: Preop diagnosis: Supraumbilical hernia, non reducible Postop diagnosis: The same Procedure: Repair of non reducible supraumbilical hernia containing fat, with medium-sized Ventralex mesh Surgeon: Newton Luis MD culture media laboratory assistant: DELILAH Osullivan The patient is a 49 year old female note of a non reducible supraumbilical hernia. She understood the technique of the planned repair. She was aware of the risks, benefits, and alternatives . She was brought to the operating room and placed supine under general anesthesia via laryngeal mask airway. The abdomen was prepped and draped in the usual sterile fashion. A surgical time-out was done. The patient received cefazolin 2 g IV preoperatively I infiltrated the planned line of incision with lidocaine 1%. I made the incision on the skin overlying the supraumbilical hernia longitudinally with a blade 15. This was carried down with electrocautery through the full-thickness of the skin and subcutaneous fat until was able to visualize the large hernia. I gently dissected the hernia sac off of the rest of the subcutaneous layer bluntly as well as with sharp dissection with the Metzenbaum scissors and electrocautery until was able to define the fascial defect. I had to sharply dissect the hernia contents off of the fascial defect with electrocautery as well as with Metzenbaum scissors to separate this. We proceeded with this dissection circumferentially until the entire hernia was freed up. This was fat containing and did not appear to involve any bowel loop. I reduced this to the fascial defect The fascial defect was about 5.5 cm in widest dimension. I continued to carefully and bluntly dissect the underside of the fascial defect to create space for the mesh. I positioned a small-sized 6 cm Ventralex mesh under the fascial defect and flattened this. I secured this with Prolene 2 sutures to the fascial edge on both sides using the Prolene side of the mesh. We made sure that the mesh was flat and then proceeded to trim the Prolene straps on both sides. I then closed the fascial layer with a running Maxon 1 0 stitch. We irrigated. I then reapposed the subcutaneous layer with Polysorb 3-0 simple interrupted sutures. Skin closure was achieved with Polysorb 4-0 subcuticular running stitch. The incision was infiltrated with Marcaine 0.5% for postop analgesia. Dressings were applied and the procedure was completed The patient tolerated the procedure well. There were no immediate complications. Initial and final counts of sponges and instruments were correct. Estimated blood loss about 10 cc The patient was extubated without difficulty and transferred to the recovery room with stable vital signs
[2024-05-03] MEDS: oxyCODONE HCl Immed Release 5 MG TABLET PO (12:39)
[2024-05-03] MEDS: Acetaminophen 1,000 MG/100 ML PIGGYBACK 400 MG IV (12:39)
[2024-05-03] MEDS: fentaNYL citrate/PF 100 MCG/2 ML VIAL 50 MCG IVPUSH (12:50)
== END 2024-05-03 14:02 | disposition home or self-care (01) ==
PROVIDERS: PCP Internal Medicine; Visit Provider Surgery
PROC: (CPT 49594; principal; 2024-05-03 11:10)
DX: K43.6 Other and unspecified ventral hernia with obstruction, without gangrene (principal); Z79.1 Long term (current) use of non-steroidal anti-inflammatories (NSAID); Z79.899 Other long term (current) drug therapy; G43.909 Migraine, unspecified, not intractable, without status migrainosus
CPT/HCPCS: 49594; C1781; J0131; J0690; J1100; J2003; J2250; J2405; J2704; J2795; J3010

== ENCOUNTER → 2024-05-03 08:39 | Outpatient (BNV) | payer OTHER, SELFPAY | PROVIDERS: PCP Internal Medicine; Visit Provider Surgery | DX: K42.0 Umbilical hernia with obstruction, without gangrene (principal) | CPT/HCPCS: 49616 ==

== ENCOUNTER 2024-05-18 09:10 | Outpatient (AMB) | payer OTHER, SELFPAY ==
--- NOTE | 2024-05-18 09:12 | MHC.OFFVIS ---
Vital Signs 05/18/24 09:18 Height 5 ft 6 in Weight 187 lb BMI 30.2 BP 142/66 H Blood Pressure Location Rt brachial Position Standing Pulse 95 Intake Visit Reasons: S/P supraumbilical hernia w/poss mesh Intake Note: This patient presents for post-op assessment status post Repair of non reducible supraumbilical hernia containing fat, with medium-sized Ventralex mesh. Pt c/o; no complaints pertaining to surgery. Fruit Worker Required: No Accompanied by: Self / Same As Patient Allergies No Known Allergies [No Known Allergies*] Allergy (Verified 05/18/24 09:18) HPI Comments Details: She underwent repair of a supraumbilical hernia with Ventralex mesh last 05/02/2024. She is here for postop visit. She says she is doing well and denies significant complaints. [facility] Medical History Migraines Supraumbilical hernia Surgical History History of hernia repair (~05/03/24) Hx of colonoscopy (04/25/24) Family History Other Family history unknown Social History Household Members: Other Household Members Other:: mother + sister Housing: House Are you a primary certified social workers in health care to a significant other at home: No Do you presently have visiting nurse or other home services: No Alcohol intake: never Comment: counts correct Patient Tobacco Use Status: Never used Tobacco Female Reproductive History Menstrual Age of Menarche: 9 Review of Systems Const Denies chills and Denies fever(s) Card Denies chest pain Resp Denies cough GI Denies abdominal pain and Denies vomiting Physical Exam Const General: comfortable and no acute distress Resp Effort & Inspection: normal respiratory effort GI Other: Incision is well healed, not infected, repair intact Palpation (GI): Soft to palpation, not firm, nontender and no guarding Assessment & Plan Assessment & Plan (1) Supraumbilical hernia: Code(s): K43.9 - Ventral hernia without obstruction or gangrene Category: Medical Plan: Status post repair with Ventralex mesh. The incision is well healed. The repair site is intact. I advised her to avoid lifting of anything more than 20 lb for about 2 more weeks. She can otherwise follow up on a p.r.n. basis. Coding Level of Care Code Global (49714) Diagnoses Supraumbilical hernia K43.9
[2024-05-18 09:18] VITALS: BP 142/66; PULSE 95; BMI 30.2
--- OUTSIDE RECORDS SUMMARY | 2024-05-18 09:21 | XMS_ITS ---
Author Organization [facility] Address [address] [place] [address] Care Team Providers Care Scissors Sharpener Name Role Phone Anastasiya Mercado Primary Care Provider Unavailab Tylor Grullon Unavailable [phone] REASON FOR VISIT colon screening PROBLEMS Problem Type ICD Code Onset Dates Problem Status W/U Status Risk SNOMED Code Notes Problem Diverticulosis of large intestine without perforation or abscess without bleeding (K57.30) Active confirmed Diverticul ar disease of colon (691847169) Encounters Encounter Location Date Provider Diagnosis [facility] [place] [address] [place] [phone] 04/25/2024 Tylor Allen Colon cancer scree juan manuel Z12.11 ; Diverticulosis of large intestine without perforation or abscess without bleeding K57.30 and Other hemorrhoids K64.8 ASSESSMENTS Encounter Date Diagnosis Assessment Notes Treatment Notes Treatment Clinical Notes 04/25/2024 Colon cancer screening (ICD-10 - Z12.11) 04/25/2024 Diverticulosis of large intestine without perforation or abscess without bleeding (ICD-10 - K57.30) 04/25/2024 Other hemorrhoids (ICD-10 - K64.8) PLAN OF TREATMENT Next Appt Details Provider Name:Tylor Allen , 06/16/2024 10:20:00 AM, [address] [place] [address], [address], [place], [address],
--- OUTSIDE RECORDS SUMMARY | 2024-05-18 09:22 | XMS_ITS | Patient Health Record ---
Author Organization [facility] Address [address] [place] [address] Care Team Providers Care Retail Delivery Driver Name Role Phone Anastasiya Mercado Primary Care Provider Tylor Alba Unavailable [phone] ALLERGIES No Known Allergies REASON FOR REFERRAL [...] Colon cancer screening (Z12.11) Active confirmed Colon can cer screening (420825767) Problem Encounter for other preprocedural examination (Z01.818) Active confirmed Pre-procedure evaluation check (812774418) Problem Diverticulosis of large intestine without perforation or abscess without bleeding (K57.30) Active confirmed Diverticul ar disease of colon (962563063) VITAL SIGNS Blood pressure diastolic 00 mm Hg 07/30/2023 Height 5 ft 6 in in 07/30/2023 Blood pressure systolic 00 mm Hg 07/30/2023 Weight 180 lbs 07/30/2023 BMI 29.05 kg/m2 07/30/2023 Encounters Encounter Location Date Provider Diagnosis [facility] [place] [address] [place], [place] [phone] 09/30/2023 Tylor Allen [facility] [place] [address] [place], [place] [phone] 04/25/2024 Tylor Allen Colon cancer screeni ng Z12.11 ; Diverticulosis of large intestine without perforation or abscess without bleeding K57.30 and Other hemorrhoids K64.8 [facility] [address] [facility] [address] [place] [address] 07/30/2023 Tylor Allen Colon cancer screeni ng Z12.11 and Encounter for other preprocedural examination Z01.818 [facility] [address] [address] 08/25/2023 Tylor Allen [facility] [address] [place] [address] 02/15/2024 Tylor Allen ASSESSMENTS Encounter Date Diagnosis Assessment Notes Treatment Notes Treatment Clinical Notes 04/25/2024 Colon cancer screening (ICD-10 - Z12.11) 04/25/2024 Diverticulosis of large intestine without perforation or abscess without bleeding (ICD-10 - K57.30) 07/30/2023 Colon cancer screening (ICD-10 - Z12.11) Do not take the Naproxen and Turmeric for one week before the colonoscopy 07/30/2023 Encounter for other preprocedural examination (ICD-10 - Z01.818) 04/25/2024 Other hemorrhoids (ICD-10 - K64.8) PLAN OF TREATMENT Future Test Test Name Order Date COLONOSCOPY 07/30/2023 Next Appt Details Provider Name:Tylor Allen , 06/16/2024 10:20:00 AM, [address] [place] [address], [address], [place], [address], Insurance Providers Payer Name Payer Address Payer Phone Subscriber Number Group Number Insured Name Patient Relationship to Insured Coverage Start Date Coverage End Date [facility] [address] [address] [place] [id number] BARTOLO VILLA Self - patient is the insured MEDICAL (GENERAL) HISTORY Medical History History ICD Code Denies [place],DM,CVA,Lung disease,renal dise ase Migraines Surgical History Surgery Date(Month/Year)
--- OUTSIDE RECORDS SUMMARY | 2024-05-18 09:22 | XMS_ITS ---
Author Organization [facility] Address [address] [facility] [address] [place] [address] Care Team Providers Care Brim Edge Trimmer Name Role Phone Anastasiya Mercado Primary Care Provider Unavailab Tylor Grullon Unavailable [phone] REASON FOR VISIT colonoscopy Encounters Encounter Location Date Provider Diagnosis [facility] [address] [place] [address] [address] [place] [address] 02/15/2024 Tylor Allen PLAN OF TREATMENT Next Appt Details Provider Name:Tylor Allen , 06/16/2024 10:20:00 AM, [address] [facility], [address], [place], [address],
--- OUTSIDE RECORDS SUMMARY | 2024-05-18 09:22 | XMS_ITS ---
Author Organization [facility] Address [address] [facility] [address] [place] [address] Care Team Providers Care Field Evidence Technician Name Role Phone Anastasiya Mercado Primary Care Provider Unavailab Tylor Grullon Unavailable [phone] REASON FOR VISIT screening Encounters Encounter Location Date Provider Diagnosis [facility] [place] [address] [place], [place] [phone] 09/30/2023 Tylor Allen PLAN OF TREATMENT Next Appt Details Provider Name:Tylor Allen , 06/16/2024 10:20:00 AM, [address] [facility], [address], [place], [address],
== END 2024-05-18 09:32 | disposition home or self-care (01) ==
PROVIDERS: PCP Internal Medicine; Visit Provider Surgery
DX: K43.9 Ventral hernia without obstruction or gangrene (principal)
CPT/HCPCS: 99212

== ENCOUNTER → 2024-05-18 09:10 | Outpatient (BNVA) | payer OTHER, SELFPAY | PROVIDERS: PCP Internal Medicine; Visit Provider Surgery ==

== ENCOUNTER 2025-02-04 07:02 | Outpatient (REF) | payer OTHER, SELFPAY ==
--- OUTSIDE RECORDS SUMMARY | 2023-09-30 06:30 | XMS_ITS ---
Author Organization [facility] Address [address] [place] [address] Care Team Providers Care Precision Grinder Name Role Phone Anastasiya Mercado Primary Care Provider Unavailab Tylor Grullon [phone] REASON FOR VISIT screening Encounters Encounter Location Date Provider Diagnosis [facility] [place] Outpatient [address] [place] [phone] 09/30/2023 Tylor Allen Plan Of Treatment No Information Progress Notes * BARTOLO VILLA MDOB:[birth year] (49 yo F)Acc No.[id number]:09/30/2023 COLON WITH MAC Patient: Gillian BARTOLO ROJAS Provider: Grady Allen MD :1975 A ge:48 Y S ex:Female Date:09/30/2023 Address:[address] [place], [place] [phone] Pcp:Anastasiya Mercado Subjective: * Chief Complaints: * 1 . Screening. * Medical History: Objective: * Vitals: Assessment: Plan: * Treatment: * * The named appointment provid er may or may not be the originator of this progress note, and it is not deemed complete until electronically signed by the appointment provider. Sign off status: Pending * Provider: Grady Allen MD Date: 0 09/30/2023 Generated for Printi ng/Fatwang/eTransmitting on: 04/06/2024 07:06 AM EST
--- OUTSIDE RECORDS SUMMARY | 2024-04-25 06:30 | XMS_ITS ---
Author Organization [facility] Address [address] [place] [address] Care Team Providers Care Margarine Churn Operator Name Role Phone YenedAnastasiya Primary Care Provider Unavailab Tylor Grullon Unavailable [phone] REASON FOR VISIT colon screening Problems Problem Type SNOMED Code ICD Code Onset Dates Problem Status W/U Status Risk Notes Problem Diverticular disease of colon (079145597) Diverticulosis of large intestine without perforation or abscess without bleeding (K57.30) Active confirmed Encounters Encounter Location Date Provider Diagnosis [facility] [place] [address] [place] [phone] 04/25/2024 Tylor Allen Colon cancer scree juan [...] * BARTOLO VILLA MDOB:[birth year] (49 yo F)Acc No.[id number]:04/25/2024 COLON WITH MAC Patient: BARTOLO NICHOLAS Provider: Grady Allen MD :1975 A ge:49 Y S ex:Female Date:04/25/2024 Address:[address] [place], [place] [phone] Pcp:Anastasiya Mercado Subjective: * Chief Complaints: * 1 . Colon screening. * Medical History: Objective: * Vitals: Assessment: * Assessment: 1. C olon cancer screening - Z12.11 (Primary) 2 . D iverticulosis of large intestine without perforation or abscess without bleeding - K57.30 3 . O ther hemorrhoids - K64.8 Plan: * Treatment: * Procedure Codes: 4 5378 DIAGNOSTIC COLONOSCOPY * * The named appointment provid er may or may not be the originator of this progress note, and it is not deemed complete until electronically signed by the appointment provider. Sign off status: Pending * Provider: Grady Allen MD Date: 0 04/25/2024 Generated for Wil rodriges/Tyrese/Barberitting on: 04/06/2024 07:06 AM EST
--- OUTSIDE RECORDS SUMMARY | 2024-06-16 05:20 | XMS_ITS ---
Author Organization [facility] Address [address] [place] [address] Care Team Providers Care Electric Power Superintendent Name Role Phone Anastasiya Mercado Primary Care Provider Unavailab Tylor Grullon [phone] REASON FOR VISIT Patient presents today for a colon screening Encounters Encounter Location Date Provider Diagnosis [facility] [address] [facility] [address] [place] [phone] 06/16/2024 Tylor Allen Plan Of Treatment No Information Progress Notes * BARTOLO VILLA MDOB:[birth year] (49 yo F)Acc No.[id number]:06/16/2024 Progress Notes Patient: Gillian TOBIASTRINIDDA BARTOLO Kamaljit Provider: Grady Allen MD :1975 A ge:49 Y S ex:Female Date:06/16/2024 Address:[address] [place], [place] [phone] Pcp:Anastasiya Mercado Subjective: * Chief Complaints: * 1 . Patient presents today for a colon screening. * Medical History: Objective: * Vitals: Assessment: Plan: * Treatment: * * The named appointment provid er may or may not be the originator of this progress note, and it is not deemed complete until electronically signed by the appointment provider. Sign off status: Pending * Provider: Grady Allen MD Date: 0 06/16/2024 Generated for Morisi zahira/Tyrese/eTransmitting on: 1 04/06/2024 07:06 AM EST
--- OUTSIDE RECORDS SUMMARY | 2024-10-05 10:00 | XMS_ITS ---
Author Organization [facility] Address [address] [place] [address] Care Team Providers Care Meat Smoker Name Role Phone Anastasiya Mercado Primary Care Provider Unavailab Tylor Grullon [phone] REASON FOR VISIT screening colonoscopy Encounters Encounter Location Date Provider Diagnosis [facility] 10 [facility] [address] [place] [phone] 10/05/2024 Tylor Allen Plan Of Treatment No Information Progress Notes * BARTOLO VILLA MDOB:[birth year] (49 yo F)Acc No.[id number]:10/05/2024 Progress Notes Patient: Gillian TOBIASTRINIDAD BARTOLO Kamaljit Provider: Grady Allen MD :1975 A ge:49 Y S ex:Female Date:10/05/2024 Address:[address] [place], [place] [phone] Pcp:Anastasiya Mercado Subjective: * Chief Complaints: * 1 . Screening colonoscopy. * Medical History: Objective: * Vitals: Assessment: Plan: * Treatment: * * The named appointment provid er may or may not be the originator of this progress note, and it is not deemed complete until electronically signed by the appointment provider. Sign off status: Pending * Provider: Grady Allen MD Date: 0 10/05/2024 Generated for Morisi ng/Fatwang/eTransmitting on: 1 04/06/2024 07:06 AM EST
--- OUTSIDE RECORDS SUMMARY | 2025-02-04 07:06 | XMS_ITS | Patient Health Record ---
Author Organization [facility] Address [address] [place] [address] Care Team Providers Care Clinical Laboratory Aide Name Role Phone Anastasiya Mercado Primary Care Provider Tylor Alba Unavailable [phone] Allergies No Known Allergies Reason For Referral No Information Medications Medication SIG (Take, Route, Frequency, Duration) Notes Start Date End Date Status Multivitamin - 1 tablet Orally Once a day; Duration: 30 day(s) Active Naproxen 500 MG TAKE ONE TABLET BY M OUTH TWICE A DAY Oral; Duration: 30 Active SUMAtriptan Succinate 100 MG TAKE ONE TA BLET BY MOUTH NEEDED FOR MIGRAINE HEADACHES 30 DAY SUPPLY) Oral; Duration: 30 Active Amitriptyline HCl 10 MG TAKE ONE TABLET BY MOUTH AT BEDTIME Oral; Duration: 30 Active Turmeric Active Social History Tobacco Use: Social History Observation Description Date Details (start date - stop date) Never Smoker NA - NA Tobacco Use/Smoking Question Answer Notes Patient is a nonsmoker Alcohol Screen Question Answer Notes Did you have a drink containing alcohol in the p ast year? No Points 0 Interpretation Negative Section Notes: Nonsmoker; no sig alcohol Problems Problem Type SNOMED Code ICD Code Onset Dates Problem Status W/U Status Risk Notes Problem Colon cancer screening (112455012) Colon cancer screening (Z12.11) Active confirmed Problem Pre-procedure evaluation check (303485710) Encounter for other preprocedural examination (Z01.818) Active confirmed Problem Diverticular disease of colon (966434499) Diverticulosis of large intestine without perforation or abscess without bleeding (K57.30) Active confirmed Encounters Encounter Location Date Provider Diagnosis [facility] Outpatient [address] [place] [address] [place] [phone] 04/25/2024 Tylor Allen Colon cancer screeni ng Z12.11 ; Diverticulosis of large intestine without perforation or abscess without bleeding K57.30 and Other hemorrhoids K64.8 [facility] [address] [place] [phone] 02/15/2024 Tylor Allen [facility] [address] [place] [phone] 06/15/2024 Tylor Allen Assessments Encounter Date Diagnosis (ICD Code) Assessment Notes Treatment Notes Treatment Clinical Notes Section Notes 04/25/2024 Colon cancer screening (ICD-10 - Z12.11) 04/25/2024 Diverticulosis of large intestine without perforation or abscess without bleeding (ICD-10 - K57.30) 04/25/2024 Other hemorrhoids (ICD-10 - K64.8) Plan Of Treatment Future Test Test Name Order Date COLONOSCOPY 07/30/2023 Insurance Providers Payer Name Payer Address Payer Phone Subscriber Number Group Number Insured Name Patient Relationship to Insured Coverage Start Date Coverage End Date [facility] [address] [address] [place] [id number] BARTOLO VILLA Self - patient is the insured Medical (General) History Medical History History ICD Code Denies [place],DM,CVA,Lung disease,renal dise ase Migraines Surgical History Surgery Date(Month/Year)
--- OUTSIDE RECORDS SUMMARY | 2025-02-04 07:06 | XMS_ITS | Clinical Summary ---
Author Organization [facility] Address [address] [address] Phone Care Team Providers Care Bacteriology Research Assistant Name Role Phone Pcp, Not Required Primary Care Provider Unavaila ble Allergies No known active allergies Medications No known medications Active Problems No known active problems Immunizations Immunization Administration Dates Next Due Tdap 08/07/2022 Social History Tobacco Use Types Packs/Day Years Used Date Smoking Tobacco: Never Smokeless Tobacco: Never Tobacco Cessation:Counseling Given: Not Answered Alcohol Use Standard Drinks/Week Comments Not Currently 0 (1 standard drink = 0.6 oz pur e alcohol) Education Answer Date Recorded Are you interested in more education? Not on cristina e 08/07/2022 Are you concerned about learning? Not on file 08/07/2022 No 08/07/2022 No 08/07/2022 Digital Access Answer Date Recorded No 08/26/2022 No 08/26/2022 Reliable internet access at home? Not on file 08/26/2022 Device with a working camera? Not on file Intimate Partner Violence Answer Date R ecorded Are you denied basic needs s uch as food, clothing, or medical care? No 12/24/2022 In the past 12 months have y ou been in a relationship with a person who hurts, threatens, or tries to control you? No 12/24/2022 Are you denied basic needs s uch as food, clothing, or medical care? No 12/24/2022 In the past 12 months have y ou been in a relationship with a person who hurts, threatens, or tries to control you? No 12/24/2022 Comments No Sex and Gender Information Value Date Recorded Sex Assigned at Female 12/24/2022 8:43 AM EDT Legal Sex Female 12:56 PM EDT Gender Identity Female 12/24/2022 8:43 AM EDT Sexual Orientation Not on file Last Filed Vital Signs Vital Sign Reading Time Taken Comments Blood Pressure 125/79 12/24/2022 3:07 PM EDT Pulse 81 12/24/2022 3:07 PM EDT Temperature 36.7 C (98.1 F) 12/24/2022 3:07 PM EDT Respiratory Rate 16 12/24/2022 3:07 PM EDT Oxygen Saturation 96% 12/24/2022 3:07 PM EDT Inhaled Oxygen Concentration - - Weight 74.8 kg (165 lb) 12/24/2022 8:40 AM EDT Height 167.6 cm (5' 6 ) 12/24/2022 8:40 AM EDT Body Mass Index 26.63 12/24/2022 8:40 AM EDT Plan of Treatment Health Maintenance Due Date Last Done Comments LIPID PANEL 1973 DEPRESSION SCREENING 1985 HEPATITIS C SCREENING 1991 HIV ONE-TIME SCREENING (18-6 5 YEARS) 1991 PAP SMEAR 1994 SCREENING FOR DIABETES 02/25/2008 MAMMOGRAM 2013 COLOGUARD 2018 COLONOSCOPY 2018 COLORECTAL CANCER SCREENING 2018 FIT TEST 2018 FOBT 2018 SIGMOIDOSCOPY 2018 VIRTUAL COLONOSCOPY 2018 PNEUMOCOCCAL VACCINES (50+ y ears) (1 of 1 - PCV) 2023 ZOSTER VACCINES (1 of 2) 2023 INFLUENZA VACCINE (#1) 2024 COVID-19 VACCINE (1 - 2024-2 6 season) 2024 Adult Td,Tdap Booster 08/07/2032 08/07/2022 RSV VACCINE (1 - 1-dose 75+ series) 02/25/2048 SMOKING STATUS SCREENING (On ce After 26 Yrs) Completed 12/24/2022 HEPATITIS A VACCINES Aged Out No long er eligible based on patient's age to complete this topic HIB VACCINES Aged Out No longer eligi ble based on patient's age to complete this topic MENINGOCOCCAL VACCINES (ACWY) Aged Out No longer eligible based on patient's age to complete this topic MENINGOCOCCAL VACCINES (B) Aged Out N o longer eligible based on patient's age to complete this topic Medical Devices Not on file Insurance [facility] [employer] [place] [employer] [facility] [place] [employer] [facility] [place] [employer] Care Teams Bacteriology Research Assistant Relationship Specialty Start Date End Date Pcp, Not Required [address] [place] [address] PCP - General 12/24/22 Additional Source Comments The information contained in this document represents components of the legal health record. It is not the complete legal health record.[facility]
--- OUTSIDE RECORDS SUMMARY | 2025-02-04 07:06 | XMS_ITS | Encounter Summary ---
Author Organization [facility] Address [address] [facility] [address] [place] [phone] Phone Care Team Providers Care Drop Forger Helper Name Role Phone Pcp, Not Required Primary Care Provider Cra ble Encounter Details Date Type Department Care Team (Late st Contact Info) Description 12/24/2022 Ophth Exam [facility] Emergency Department [address] [place] [address] Magan Conklin MD, MPH [address] [place] [phone] [email or web address] Social History Tobacco Use Types Packs/Day Years Used Date Smoking Tobacco: Never Smokeless Tobacco: Never Alcohol Use Standard Drinks/Week Comments Not Currently [...] AM EDT Sexual Orientation Not on file documented as of this encounter Functional Status * Calculated C-SSRS Risk Score (Lifetime/Recent) Answer Date of Assessment Author No Risk Indicated 12/24/2022 3:01 PM EDT Xu Gore RN * Grand Suicide Severity Rating Scale (Screener/Recent Self-Report) Question Answer Date of Assessment Author 1. Wish to be (Past 1 Month) No 12/24/2022 3:01 PM EDT Xu Gore RN 2. Non-Specific Active Suicidal Thoughts (Past 1 Month) No 12/24/2022 3:01 PM EDT Xu Gore RN 6. Suicidal Behavior (Lifetime) No 12/24/2022 3:01 PM EDT Xu Gore RN documented as of this encounter Plan of Treatment Not on file documented as of this encounter Visit Diagnoses Not on filedocumented in this encounter Care Teams Drop Forger Helper Relationship Specialty Start Date End Date Pcp, Not Required [address] [place] [address] PCP - General 12/24/22 documented as of this encounter Additional Source Comments The information contained in this document represents components of the legal health record. It is not the complete legal health record.[facility]
[2025-02-04 09:43] LABS: Alanine Aminotransferase 22 U/L (0-31); Albumin Level 4.1 g/dL (3.5-5.0); Alkaline Phosphatase 65 U/L (39-117); Anion Gap 11 (12-20); Aspartate Amino Transferase 21 U/L (5-31); Blood Urea Nitrogen 17 mg/dL (9-16); Calcium 9.2 mg/dL (8.4-10.2); Carbon Dioxide 26 mmol/L (22-29); Chloride 107 mmol/L (96-108); Cholesterol 176 mg/dL (<200); Estimated Glomerular Filt Rate > 60; HDL Cholesterol 49 mg/dL (>40); Potassium 4.3 mmol/L (3.3-5.1); Sodium 140 mmol/L (135-145); Total Protein 7.2 g/dL (6.5-8.0); Triglycerides 76 mg/dL (<150)
== END 2025-02-04 07:03 | disposition home or self-care (01) ==
LOC: HO.LAB 07:02
PROVIDERS: PCP Internal Medicine; Visit Provider Internal Medicine
DX: I10 Essential (primary) hypertension (principal); N95.1 Menopausal and female climacteric states; G43.109 Migraine with aura, not intractable, without status migrainosus; Z68.30 Body mass index [BMI] 30.0-30.9, adult
CPT/HCPCS: 36415; 80053; 80061

== ENCOUNTER 2025-03-16 14:32 | Outpatient (REF) | payer OTHER, SELFPAY ==
--- OUTSIDE RECORDS SUMMARY | 2024-04-25 06:30 | XMS_ITS ---
Author Organization [facility] Address [address] [place] [address] Care Team Providers Care Triage Clinician Name Role Phone Yened Anastasiya Primary Care Provider Unavailab Tylor Grullon Unavailable [phone] REASON FOR VISIT colon screening Problems Problem Type SNOMED Code ICD Code Onset Dates Problem Status W/U Status Risk Notes Problem Diverticular disease of colon (585555951) Diverticulosis of large intestine without perforation or abscess without bleeding (K57.30) Active confirmed Encounters Encounter Location Date Provider Diagnosis [facility] [address] [place] [phone] 04/25/2024 Tylor Allen Colon cancer scree juan manuel Z12.11 ; Diverticulosis of large intestine without perforation or abscess without bleeding K57.30 and Other hemorrhoids K64.8 Assessments Encounter Date Diagnosis (ICD Code) Assessment Notes Treatment Notes Treatment Clinical Notes Section Notes 04/25/2024 Colon cancer screening (ICD-10 - Z12.11) 04/25/2024 Diverticulosis of large intestine without perforation or abscess without bleeding (ICD-10 - K57.30) 04/25/2024 Other hemorrhoids (ICD-10 - K64.8) Plan Of Treatment No Information Progress Notes * BARTOLO VILLA MDOB:[birth year] (50 yo F)Acc No.[id number]:04/25/2024 COLON WITH MAC Patient: BARTOLO NICHOLAS Provider: Grady Allen MD :1975 A ge:49 Y S ex:Female Date:04/25/2024 Address:[address] [place], [place] [phone] Pcp:Anastasiya Mercado Subjective: * Chief Complaints: * C olon screening Assessment: * Assessment: 1. C olon cancer screening - Z12.11 (Primary) 2 . D iverticulosis of large intestine without perforation or abscess without bleeding - K57.30 3 . O ther hemorrhoids - K64.8 Plan: * Procedure Codes: 4 5378 DIAGNOSTIC COLONOSCOPY Billing Information: * Procedure Codes: 73247 DIAGNOSTIC COLONOSCOPY. * The named appointment provid er may or may not be the originator of this progress note, and it is not deemed complete until electronically signed by the appointment provider. Sign off status: Pending * Provider: Grady Allen MD Date: 0 04/25/2024 Generated for Wil rodriges/Tyrese/Barberitting on: 05/17/2024 06:42 PM EST
--- OUTSIDE RECORDS SUMMARY | 2024-06-16 05:20 | XMS_ITS ---
Author Organization [facility] Address [address] [place] [address] Care Team Providers Care Water Valve Repairer Name Role Phone Anastasiya Mercado Primary Care Provider Unavailab Tylor Grullon [phone] REASON FOR VISIT Patient presents today for a colon screening Encounters Encounter Location Date Provider Diagnosis [facility] [address] [facility] [address] [place] [address] 06/16/2024 Tylor Allen Plan Of Treatment No Information Progress Notes * BARTOLO VILLA MDOB:[birth year] (50 yo F)Acc No.[id number]:06/16/2024 Progress Notes Patient: Gillian TOBIASTRINIDAD BARTOLO Kamaljit Provider: Grady Allen MD :1975 A ge:49 Y S ex:Female Date:06/16/2024 Address:[address] [place], [place] [phone] Pcp:Anastasiya Mercado Subjective: * Chief Complaints: * P atient presents today for a colon screening * The named appointment provid er may or may not be the originator of this progress note, and it is not deemed complete until electronically signed by the appointment provider. Sign off status: Pending * Provider: Grady Allen MD Date: 0 06/16/2024 Generated for Morisi ng/Fatwang/eTransmitting on: 1 05/17/2024 06:42 PM EST
--- OUTSIDE RECORDS SUMMARY | 2024-10-05 10:00 | XMS_ITS ---
Author Organization [facility] Address [address] [place] [phone] Care Team Providers Care Ware Tester Name Role Phone Anastasiya Mercado Primary Care Provider Unavailab Tylor Grullon [phone] REASON FOR VISIT screening colonoscopy Encounters Encounter Location Date Provider Diagnosis [facility] 10 [facility] [address] [place] [address] 10/05/2024 Tylor Allen Plan Of Treatment No Information Progress Notes * BARTOLO VILLA MDOB:[birth year] (50 yo F)Acc No.[id number]:10/05/2024 Progress Notes Patient: Gillian TOBIASTRINIDAD BARTOLO Mari Provider: Grady Allen MD :1975 A ge:49 Y S ex:Female Date:10/05/2024 Address:[address] [place], [place] [phone] Pcp:Anastasiya Mercado Subjective: * Chief Complaints: * S creening colonoscopy * The named appointment provid er may or may not be the originator of this progress note, and it is not deemed complete until electronically signed by the appointment provider. Sign off status: Pending * Provider: Grady Allen MD Date: 0 10/05/2024 Generated for Wil rodriges/Tyrese/eTransmitting on: 1 05/17/2024 06:42 PM EST
--- OUTSIDE RECORDS SUMMARY | 2025-03-16 18:43 | XMS_ITS | Encounter Summary ---
Author Organization [facility] Address [address] [facility] [address] [place] [phone] Phone Care Team Providers Care Licensed Psychologist Director Name Role Phone Pcp, Not Required Primary Care Provider Cra ble Encounter Details Date Type Department Care Team (Late st Contact Info) Description 12/24/2022 Ophth Exam [facility] Emergency Department [address] [place] [address] Magan Conklin MD, MPH [address] [place] [id number] [email or web address] Social History Tobacco Use Types Packs/Day Years [...] 3:01 PM EDT Xu Gore RN * [place] Suicide Severity Rating Scale (Screener/Recent Self-Report) Question [...] on filedocumented in this encounter Care Teams Licensed Psychologist Director Relationship Specialty Start Date End Date Pcp, Not Required PCP - General 12/24/22 documented as of this encounter Additional Source Comments The information contained in this document represents components of the legal health record. It is not the complete legal health record.[facility]
--- OUTSIDE RECORDS SUMMARY | 2025-03-16 18:43 | XMS_ITS | Clinical Summary ---
Author Organization [facility] Address [address] [address] Phone Care Team Providers Care Foreign Language Teacher Name Role Phone Pcp, Not Required Primary [...] topic Medical Devices [place] [id number] WORK[employer] COMPENS[employer] Care Teams Foreign Language Teacher Relationship Specialty Start Date End Date Pcp, Not Required PCP - General 12/24/22 Additional Source Comments The information contained in this document represents components of the legal health record. It is not the complete legal health record.[facility]
--- OUTSIDE RECORDS SUMMARY | 2025-03-16 18:43 | XMS_ITS | Patient Health Record ---
Author Organization [facility] Address [address] [place] [address] Care Team Providers Care Meter Tester Primary Name Role Phone Anastasiya Mercado Primary Care Provider Tylor Alba Unavailable [phone] Allergies No Known Allergies Reason For Referral No Information Medications Medication SIG (Take, Route, Frequency, Duration) Notes Start Date End Date Status Multivitamin - Tablet 1 tablet Orally On ce a day; Duration: 30 day(s) Active Naproxen 500 MG Tablet TAKE ONE TABLET B Y MOUTH TWICE A DAY Oral; Duration: 30 Active SUMAtriptan Succinate 100 MG Tablet TAKE ONE TABLET BY MOUTH NEEDED FOR MIGRAINE HEADACHES 30 DAY SUPPLY) Oral; Duration: 30 Active Amitriptyline HCl 10 MG Tablet TAKE ONE TABLET BY MOUTH AT BEDTIME Oral; Duration: 30 Active Turmeric Active Social History Tobacco Use: Social History Observation Description Date Details (start date - stop date) Never Smoker NA - NA Social History Drugs/Alcohol: Social Info Question Answer Notes Alcohol Screen Did you have a drink containing alcohol in the past year? No Points 0 Interpretation Negative Tobacco Use: Social Info Question Answer Notes Tobacco Use/Smoking Patient is a nonsmoker Additional Details Category Social Info Options Details Miscellaneous: Marital status: single Occupation: ACUTE CARE OCCUPATIONAL THERAPIST AT [employer] Notes: Nonsmoker; no sig alcohol Problems Problem Type SNOMED Code ICD Code Onset Dates Problem Status W/U Status Risk Notes Problem Colon cancer screening (892765102) Colon cancer screening (Z12.11) Active confirmed Problem Pre-procedure evaluation check (382300130) Encounter for other preprocedural examination (Z01.818) Active confirmed Problem Diverticular disease of colon (099965132) Diverticulosis of large intestine without perforation or abscess without bleeding (K57.30) Active confirmed Encounters Encounter Location Date Provider Diagnosis [facility] [address] [place], [place] [phone] 04/25/2024 Tylor Allen Colon cancer screeni ng Z12.11 ; Diverticulosis of large intestine without perforation or abscess without bleeding K57.30 and Other hemorrhoids K64.8 [facility] [address] [place] [address] 06/15/2024 Tylor Allen Assessments Encounter Date Diagnosis [...] Insured Coverage Start Date Coverage End Date [facility] [address] [address] [place] [id number] BARTOLO VILLA Self - patient is the insured Medical (General) History Medical History History ICD Code Denies [place],DM,CVA,Lung disease,renal dise ase Migraines Surgical History Surgery Date(Month/Year)
== END 2025-03-16 14:33 | disposition home or self-care (01) ==
LOC: HO.MAMMO 14:32
PROVIDERS: PCP Internal Medicine; Visit Provider Internal Medicine
DX: Z12.31 Encounter for screening mammogram for malignant neoplasm of breast (principal)
CPT/HCPCS: 77063; 77067

== ENCOUNTER → 2025-03-16 14:45 | Outpatient (BNV) | payer OTHER, SELFPAY | PROVIDERS: PCP Internal Medicine; Visit Provider Internal Medicine | DX: Z12.31 Encounter for screening mammogram for malignant neoplasm of breast (principal) | CPT/HCPCS: 77063; 77067 ==